=== PATIENT | female | born 1945 | race African-American/Black ===

== ENCOUNTER 2018-02-18 01:50 | Inpatient (IN) | payer OTHER ==
[2018-02-18] VITALS (7 sets, daily range): BP systolic 95–143; BP diastolic 52–72
[~2018-02-18] VITALS: Ht 162.6 cm; Wt 93.0 kg
[~2018-02-18 01:50] MED LIST: AMLODIPINE BESY10 MG PO; CO Q-10100 MG PO; COLACE100 MG PO; COZAAR 25 MG TA25 M1 PO; FISH OIL 1,001000 M2 PO; MELOXICAM7.5 MG; NORCO 5-325 TA1 EACH PO; RED YEAST RICE600 MG PO; SPIRONOLACTONE25 M1 PO; TRIBENZOR 40-11 EAC1 PO; VITAMIN D1000 UNI1 PO
[2018-02-18] MEDS ORDERED: NORVASC5 MG PO (02:05)
[2018-02-18 03:09] LABS: HEMATOCRIT 37.8 % (37.0-47.0); HEMOGLOBIN 12.7 gm/dL (12.0-15.0); MCH 30.3 pg (26.0-34.0); MCHC 33.5 g/dL (28.0-37.0); MCV 90.3 fL (80.0-100.0); MPV 7.5 fl. (7.2-11.1); NUCLEATED RBCS 0 /100WBC; PLATELET COUNT* 373 thou/uL (150-400); RBC 4.18 mil/uL (4.20-5.00); RDW-CV 13.7 % (10.5-14.5); WBC 9.6 thou/uL (4.0-11.0)
[2018-02-18 03:16] LABS: CALCIUM 8.8 mg/dL (8.5-10.1); CREATININE 1.2 mg/dL (0.6-1.3); POTASSIUM 3.6 mmol/L (3.5-5.1)
[2018-02-18 03:18] LABS: ALBUMIN 3.1 g/dL (3.4-5.0); TOTAL BILIRUBIN 0.5 mg/dL (<0.1-1.0); TOTAL PROTEIN 7.3 g/dL (6.4-8.2)
[2018-02-18 03:24] LABS: ABSOLUTE EOSINOPHILS 2.1 thou/uL (0.0-0.7); ABSOLUTE LYMPHOCYTES 2.9 thou/uL (0.8-5.3); ABSOLUTE MONOCYTES 0.3 thou/uL (0.0-1.2); ABSOLUTE NEUTROPHILS 4.3 thou/uL (1.6-8.1); PLATELET ESTIMATE ADEQUATE
[2018-02-18] MEDS ORDERED: CHONDROITIN SU250 MG PO (07:00)
--- NOTE | 2018-02-18 07:00 | NUR ---
ADMITTED FROM ER. PT ABLE TO SPEAK CLEARLY AND SWALLOW WITHOUT DIFFICULTY, NO BREATHING ISSUES. TONGUE IS EDEMATOUS BUT PT STATES IMPROVED. ANIKA KNEES EDEMATOUS, BANDAIDS NOTED. TELEMETRY APPLIED SHOWING A-FIB VS SR WITH FREQ PAC. SEE ADMISSION ASSESSMENT AND HX. REPORT GIVEN TO ONCOMING SHIFT.
--- NOTE | 2018-02-18 10:20 | NUR ---
ASSUMED CARE OF PATIENT AFTER REPORT THIS MORNING. PATIENT AWAKE, ALERT, AND ORIENTED APPROPRIATELY. PHYSICAL ASSESSMENT COMPLETED AND CHARTED. COMPLAINED OF MILD PAIN TO RIGHT KNEE. DID NOT REQUEST ANY PAIN MEDICATION. VITAL SIGNS STABLE. OXYGEN SATURATION WITHIN NORMAL LIMITS ON ROOM AIR. PATIENT TRANSFERS AND AMBULATES WITH ASSISTANCE FROM STAFF. USES CALL LIGHT APPROPRIATELY. DENIES NEEDS AT THIS TIME. CALL LIGHT WITHIN REACH. FAMILY IN ROOM. NURSING WILL CONTINUE TO MONITOR.
--- NOTE | 2018-02-18 12:02 | NUR ---
Pt is out of the room having an EGD done, will f/u
--- NOTE | 2018-02-18 12:08 | NUR ---
Pt is A&O. Resides at home with family. Normally independent with ADLs. Uses a cane for mobility. Hx of HH. No hx of SNF. Goal is to return home once medically stable for dc. Family in room and available assist as needed.
--- NOTE | 2018-02-18 15:22 | 2DMMODE ---
[place] [address] 2 D/M-MODE ECHOCARDIOGRAM Name: PRATIK QUINTERO Room: [address] IN [facility]#: [id number] Admission: 02/18/18 Attend Phys: Fausto Ingram Discharge: Date of : 41 Date of Service: 02/18/18 1522 Report #: [id number] THIS REPORT FOR: //name// APPROVED REPORT Study performed: 02/18/2018 11:53:18 EXAM: Comprehensive 2D, Doppler, and color-flow Echocardiogram Patient Location: In-Patient Room #: [facility] Status: routine BSA: 1.90 HR: 109 bpm BP: 123/64 mmHg Rhythm: Atrial Fibrillation Other Information Study Quality: Good Indications Atrial Fibrillation 2D Dimensions LVEF(%): 80.60 (>50%) IVSd: 13.93 (7-11mm) LVOT Diam: 20.03 (18-24mm) LVDd: 39.75 mm PWd: 12.19 (7-11mm) Ascending Ao: 34.24 (22-36mm) LVDs: 20.40 (25-40mm) Aortic Root: 30.14 mm Smith's LVEF: 80.60 % Volumes Left Atrial Volume (Systole) LA ESV Index: 37.20 mL/m2 Aortic Valve AoV Peak Wilfredo.: 1.55 m/s AO Peak Gr.: 9.64 mmHg LVOT Max P.82 mmHg AO Mean Gr.: 5.23 mmHg LVOT Mean P.33 mmHg LVOT Max V: 1.10 m/s AO V2 VTI: 28.07 cm LVOT Mean V: 0.70 m/s REBECA (VTI): 2.41 cm2 LVOT V1 VTI: 21.51 cm Mitral Valve MV Decel. Time: 186.31 [place] [address] 2 D/M-MODE ECHOCARDIOGRAM Name: PRATIK QUINTERO Room: [address] IN .R.#: [id number] Admission: 02/18/18 Attend Phys: Fausto Ingram Discharge: Date of : 41 Date of Service: 02/18/18 1522 Report #: [id number] MV PHT: 54.03 ms MVA (PHT): 4.07 cm2 TDI Medial E' Wilfredo.: 0.12 m/s Lateral E' Wilfredo.: 0.18 m/s Pulmonary Valve PV Peak Wilfredo.: 0.93 m/s PV Peak Gr.: 3.45 mmHg Tricuspid Valve TR Peak Gr.: 27.02 mmHg RVSP: 32.00 mmHg Left Ventricle The left ventricle is normal size. There is normal LV segmental wall motion. Mild concentric left ventricular hypertrophy. Left ventricular systolic function is normal. The left ventricular ejection fraction is within the normal range. LVEF is 60-65%. The left ventricular diastolic function is normal. Right Ventricle The right ventricle is normal size. The right ventricular systolic function is normal. Atria Left atrium is mildly dilated. Right atrium is dilated. Aortic Valve Mild aortic valve sclerosis. No aortic regurgitation is present. There is no aortic valvular stenosis. Mitral Valve The mitral valve is normal in structure. Mild mitral regurgitation. No evidence of mitral valve stenosis. Tricuspid Valve The tricuspid valve is normal in structure. Mild tricuspid regurgitation. The RVSP is 30-35 mmHg. Pulmonic Valve The pulmonary valve is normal in structure. There is no pulmonic valvular regurgitation. Great Vessels The aortic root is normal in size. IVC is normal in size and collapses with >50% [place] [address] 2 D/M-MODE ECHOCARDIOGRAM Name: PRATIK QUINTERO Room: [address] IN [facility]#: [id number] Admission: 02/18/18 Attend Phys: Fausto Ingram Discharge: Date of : 41 Date of Service: 02/18/18 1522 Report #: [id number] Pericardium There is no pericardial effusion. <Conclusion> The left ventricle is normal size. Mild concentric left ventricular hypertrophy. Left ventricular systolic function is normal. The left ventricular ejection fraction is within the normal range. LVEF is 60-65%. The left ventricular diastolic function is normal. The right ventricle is normal size. Left atrium is mildly dilated. Mild aortic valve sclerosis. No aortic regurgitation is present. There is no aortic valvular stenosis. The mitral valve is normal in structure. Mild mitral regurgitation. The tricuspid valve is normal in structure. Mild tricuspid regurgitation. The RVSP is 30-35 mmHg. IVC is normal in size and collapses with >50% inspiration There is no pericardial effusion. There is normal LV segmental wall motion. <ELECTRONICALLY SIGNED> By: Eitan Farfan MD, FACC 02/18/18 1522 [id number] Eitan Farfan MD, FACC /INF
--- NOTE | 2018-02-18 18:27 | NUR ---
PATIENT REMAINS ALERT AND ORIENTED APPROPRIATELY. DENIES NEEDS AT THIS TIME. CALL LIGHT WITHIN REACH. NURSING WILL CONTINUE TO MONITOR.
[2018-02-19] VITALS (7 sets, daily range): BP systolic 99–129; BP diastolic 46–72
--- NOTE | 2018-02-19 02:35 | NUR ---
RECIEVED REPORT AND TOOK PT INTO CARE AT 1930. ASSESSMENT COMPLETED CHARTED. ABLE TO MAKE NEEDS KNOWN, A & O X 4, UP X1 ASSIST WITH CANE, CALL LIGHT WITHIN REACH. PT RESTING IN BED AT THIS TIME WITH NS RUNNING AT 100 IN RFA. C/O SLIGHT PAIN IN KNEES, NO C/O SWELLING IN TONGUE OR OTHER ALLERGIC REACTION S/SX. WILL CONTINUE WITH PLAN OF CARE.
--- NOTE | 2018-02-19 13:06 | EKG ---
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1945 Requested By: Sasha Alvarez Order Number: [id number] Sejal MD: Tyler Fisher Measurements Intervals [place] Rate: 96 P: [place]: QRS: 66 QRSD: 95 T: 58 QT: 363 QTc: 459 Interpretive Statements Atrial fibrillation Borderline low voltage, extremity leads Compared to ECG 03/30/2008 01:13:34 Sinus bradycardia no longer present Left ventricular hypertrophy no longer present T-wave abnormality no longer present Possible ischemia no longer present Electronically Signed On 02-19-2018 13:05:55 CDT by Tyler Fisher [email or web address] <ELECTRONICALLY SIGNED> By: Tyler Fisher MD, [facility] 02/19/18 1305 5 0826 Tyler Fisher MD, FAC /EPI
--- NOTE | 2018-02-19 15:41 | NUR ---
ASSUMED PT CARE AT 0700 PT IS ALERT AND ORIENTED X 4 PT IS UP WITH ASSISTANCE PT IS NOT A FALL RISK, PT IS AFIB OM THE MONITOR, PT EDUCATED ON THE IMPORTANCE OF TAKING ELIQUIS PT STATES HAS LEG PAIN PAGED PHYSICIAN WHO ORDERED TYLENOL PT EDUCATED NOT TO TAKE ALIEVE OR OTHER MEDICATIONS THAT ARE NON STEROIDAL ANTIINFLAMMATORY PT STATES UNDERSTANDING, WILL CONTINUE TO MONITOR
[2018-02-20 04:00] VITALS: BP 120/63
--- NOTE | 2018-02-20 04:13 | NUR ---
ASSUMED CARE OF PATIENT AT 1900 THE PATIENT REMAINS SR ON THE MONITOR O2 SAT MAINTAINED ON RA CONTINUES TO BE UP WITH ASSIST OF 1 DAUGHTER AT BEDSIDE COMPLETES TOILETING ASSIST TO THE BR THE ROUTINE REGIMEN CONTINUES TO BE EFFECTIVE FOR SX MANAGEMENT REPORTS CONTROLLED PAIN IN LE WITHOUT PHARMALOGICAL INTERVENTION SAFETY INTERVENTIONS CONTINUE BED LOWERED WHEELS LOCKED CALL LIGHT IN REACH SIDE RAILS UP REPORT TO BE GIVEN TO LUCÍA ASHLEY
[2018-02-20 08:00] VITALS: BP 151/90
[2018-02-20 13:04] VITALS: BP 156/104
[2018-02-20] MEDS ORDERED: ELIQUIS5 MG PO (16:51)
[2018-02-20] MEDS ORDERED: PREDNISONE 20 M20 MG PO (16:54)
[2018-02-20] MEDS ORDERED: PEPCID20 MG PO (16:58)
[2018-02-20] MEDS ORDERED: CLARITIN10 MG PO (16:58)
[2018-02-20] MEDS ORDERED: FISH OIL 1,001000 M2 PO (17:03)
[2018-02-20 17:22] VITALS: BP 127/61
[2018-02-20 17:39] VITALS: BP 127/61
[2018-02-20 17:48] VITALS: BP 127/61
--- NOTE | 2018-02-20 19:55 | NUR ---
DISCHARGE MEDS, EDUCATION MATERIALS, RXS, FOLLOW UP AND DISCHARGE INSTRUCTIONS REVIEWED WITH PT AND DAUGHTER. BOTH VOICED UNDERSTANDING AND ALL QUESTIONS ANSWERED. DISCUSSED INCREASED BLEEDING RISKS WITH ANTICOAG. PT WHEELED OUT BY PUBLIC HEALTH ASSISTANT AND PUT IN DAUGHTER'S PRIVATE VEHICLE.
== END 2018-02-20 19:19 | disposition home or self-care (01) | DRG 916 ==
LOC: M.ERS 01:50 → M.TBA-ER 05:21 → M.2W 05:21
PROVIDERS: Personal Emergency Response Attendant; ADMIT Internal Medicine
DX: T78.3XXA Angioneurotic edema, initial encounter (principal); E44.1 Mild protein-calorie malnutrition; I48.91 Unspecified atrial fibrillation; I10 Essential (primary) hypertension; M19.90 Unspecified osteoarthritis, unspecified site; E78.5 Hyperlipidemia, unspecified; T66.XXXA Radiation sickness, unspecified, initial encounter; M25.40 Effusion, unspecified joint; M17.0 Bilateral primary osteoarthritis of knee; Z88.8 Allergy status to other drugs, medicaments and biological substances; Z79.899 Other long term (current) drug therapy

== ENCOUNTER 2019-10-17 15:28 | Emergency (ER) | payer OTHER ==
[~2019-10-17] VITALS: Ht 165.1 cm; Wt 83.5 kg
[~2019-10-17 15:28] MED LIST changes: +CHONDROITIN SU250 MG PO; +CLARITIN10 MG PO; +ELIQUIS5 MG PO; +NORVASC5 MG PO; +PEPCID20 MG PO; +PREDNISONE 20 M20 MG PO
[2019-10-17] MEDS ORDERED: DILT-XR120 MG PO (15:44)
[2019-10-17] MEDS ORDERED: PREDNISONE 20 M20 M1 PO (16:09)
[2019-10-17 18:10] VITALS: BP 172/86
== END 2019-10-17 18:10 | disposition home or self-care (01) ==
LOC: M.ERS 15:28
DX: K14.8 Other diseases of tongue (principal); R06.02 Shortness of breath; T78.49XA Other allergy, initial encounter; Z88.8 Allergy status to other drugs, medicaments and biological substances; Y92.89 Other specified places as the place of occurrence of the external cause; I10 Essential (primary) hypertension; Z98.890 Other specified postprocedural states

== ENCOUNTER 2019-11-03 15:59 | Emergency (ER) | payer OTHER ==
[~2019-11-03] VITALS: Ht 162.6 cm; Wt 82.6 kg
[~2019-11-03 15:59] MED LIST changes: +DILT-XR120 MG PO; +PREDNISONE 20 M20 M1 PO
[2019-11-03] MEDS ORDERED: PREDNISONE 20 M20 M1 PO (16:34)
[2019-11-03 18:00] VITALS: BP 159/103
== END 2019-11-03 18:02 | disposition home or self-care (01) ==
LOC: M.ERS 15:59
DX: T78.1XXA Other adverse food reactions, not elsewhere classified, initial encounter (principal); R22.9 Localized swelling, mass and lump, unspecified; I10 Essential (primary) hypertension; Z91.013 Allergy to seafood; Z88.4 Allergy status to anesthetic agent; Z88.8 Allergy status to other drugs, medicaments and biological substances; X58.XXXA Exposure to other specified factors, initial encounter